=== PATIENT | female | born 1950 | race Caucasian/White ===

== ENCOUNTER → 2017-07-02 | Outpatient (CLI) | payer OTHER | LOC: FIMAGING 08:45 | PROVIDERS: ATTEND Family Medicine | DX: R60.0 Localized edema (principal); Z86.718 Personal history of other venous thrombosis and embolism ==

== ENCOUNTER → 2017-07-08 | Outpatient (CLI) | payer OTHER | LOC: FIMAGING 14:35 | PROVIDERS: ATTEND Family Medicine | DX: Z12.31 Encounter for screening mammogram for malignant neoplasm of breast (principal); Z80.3 Family history of malignant neoplasm of breast | CPT/HCPCS: G0202 ==

== ENCOUNTER → 2017-09-22 | Outpatient (CLI) | payer OTHER | LOC: FIMAGING 07:34 | PROVIDERS: ATTEND Internal Medicine Infectious Disease | DX: L97.329 Non-pressure chronic ulcer of left ankle with unspecified severity (principal) ==

== ENCOUNTER 2018-04-13 11:02 | Emergency (ER) | payer OTHER ==
[2018-04-13 11:25] VITALS: BP 149/69
--- NOTE | 2018-04-13 12:30 | EDPHY ---
General Time Seen by Provider: 04/13/18 12:14 Narrative: CHIEF COMPLAINT: Fall on Friday, left wrist and elbow pain HISTORY OF PRESENT ILLNESS: Patient goes by the name Darling. Patient reports an accidental fall on Friday. She was working in her garden when she fell backwards, landing on outstretched hand. She felt a sudden onset of pain in the left wrist distally and some posterior elbow pain. She thought that she would be okay, thus she waited to present to the emergency department. But now she has increasing pain , bruising and swelling to the left wrist. It is worse with palpation and movement. No numbness but some tingling down the thumb. No difficulty bending or straightening the elbow but does have some pain in the posterior elbow. She did not strike her head or lose consciousness. She does not take anticoagulants. She is right-hand dominant. No other associated complaints or modifying factors. 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 Lives independently locally FAMILY HISTORY: Noncontributory EXAMINATION General Appearance: Alert, no distress HEENT: Normocephalic atraumatic. Pupils equal round reactive. EOM symmetric. Cardiovascular: Symmetric radial pulses 2+. Brisk cap refill the fingers left hand. Neurological: A&O, sensory symmetric, interossei strength symmetric Skin: Warm and dry, no rash. Moderate ecchymosis to the left hand and wrist. No laceration or puncture Extremities: Minimal tenderness of the left posterior elbow. There is no tenderness of left radial head. Full flexion and extension of left elbow without pain or hesitancy. There is tenderness of the left distal radius but no deformity or crepitus. Psychiatric: Mood and affect normal DIFFERENTIAL DIAGNOSES: Including but not limited to sprain, strain, radial head fracture, Colles fracture, distal radial fracture MDM: 12:15 p.m. Mechanical fall on Friday with that a FOOSH resulting in a distal radial fracture that is nondisplaced. She also has mild posterior elbow pain, thus I will obtain an x-ray of the elbow. Plan for sugar-tong splint. She is neuro intact distally. No injury elsewhere. 12:30 p.m. X-ray of the elbow was negative as read by me. Proceed with sugar-tong splint. 1:30 p.m. Distal radius fracture that is nondisplaced. Elbow plain film is negative. She has been placed in a sugar-tong splint. We have discussed ice, elevation sling. We discussed anti-inflammatories and mandatory follow up with Orthopedics for definitive care. We discussed ED precautions for worsening pain , numbness, tingling, weakness, wrist drop. She is comfortable with this plan and discharged home stable condition. SUPERVISION: This patient was independently evaluated without direct involvement of or examination by the attending physician. ED Precautions: Worsening pain. Erythema, edema, cyanosis, pallor, paresthesia or anesthesia. - History Smoking Status: Former smoker - Objective Vital Signs: Initial Vital Signs Temperature (C) 97.9 F 04/13/18 11:20 Heart Rate 57 L 04/13/18 11:20 Respiratory Rate 16 04/13/18 11:20 Blood Pressure 149/69 H 04/13/18 11:20 O2 Sat (%) 95 04/13/18 11:20 O2 Delivery Mode Room Air Allergies/Adverse Reactions: amoxicillin Allergy (Verified 04/13/18 11:18) hydrocodone Allergy (Verified 04/13/18 11:18) Home Medications: Medication Instructions Recorded Cholecalciferol Vit D3 [Vitamin D3 4,000 units PO HS 11/11/13 2000 units (OTC)] Cyanocobalamin [Vitamin B12 1000 10,000 mcg PO DAILY 11/11/13 MCG (OTC)] Herbals/Supplements -Info Only 1 each PO AD 11/11/13 Levothyroxine Sodium 75 mcg PO DAILY@07 11/11/13 Liothyronine Sodium [Cytomel 5 mcg 10 mcg PO DAILY 11/11/13 (RX)] S-Adenosylmethionine Sul Tosyl 400 mg PO TID 11/11/13 [Adalberto-E] Vitamin B Complex [Vitamin B 2 each PO DAILY 11/11/13 Complex (OTC)] Departure - Departure Disposition: Home, Routine, Self-Care Clinical Impression: Distal radius fracture, left Qualifiers: Encounter type: initial encounter Fracture type: closed Fracture morphology: unspecified fracture morphology Qualified Code(s): S52.502A - Unspecified fracture of the lower end of left radius, initial encounter for closed fracture Condition: Good Instructions: Arm Fracture in Adults (ED) Additional Instructions: 1. Ice and elevation often 2. Keep your splint in place at all times except as discussed 3. Contact Orthopedics for definitive care 4. Notified primary care physician of visit to the emergency department 5. ED precautions as discussed Referrals: Jill Birmingham MD [Primary Care Provider] - As per Instructions Chaitanya Alcaraz MD [Medical Doctor] - As per Instructions
== END 2018-04-13 13:45 | disposition home or self-care (01) ==
DX: S52.502A Unspecified fracture of the lower end of left radius, initial encounter for closed fracture (principal); Z87.891 Personal history of nicotine dependence; W18.39XA Other fall on same level, initial encounter; Y92.007 Garden or yard of unspecified non-institutional (private) residence as the place of occurrence of the external cause; Y99.8 Other external cause status; Y93.H2 Activity, gardening and landscaping
CPT/HCPCS: 73080; 73110; 99283; A4565